=== PATIENT | female | born 1990 | race Caucasian/White ===

== ENCOUNTER 2020-05-28 12:00 | Outpatient (CLI) | payer BC | END 2020-05-28 12:01 | disposition home or self-care (01) | LOC: LAB 12:00 | PROVIDERS: ATTEND Midwife | DX: O09.01 Supervision of pregnancy with history of infertility, first trimester (principal); Z3A.00 Weeks of gestation of pregnancy not specified | CPT/HCPCS: 36415; 81599; 84144; 84702 ==

== ENCOUNTER 2021-01-10 11:19 | Outpatient (CLI) | payer BC ==
--- NOTE | 2021-01-10 20:58 | Ultrasound Report ---
PROCEDURE: Pelvic w/Transvaginal INDICATIONS: HX OF SPONTANEOUS TECHNIQUE: Real-time scanning was performed of the pelvic organs, with image documentation. Additional endovagi nal scanning was necessary due to incomplete visualization of the adnexal and endometrial structures by transabdominal scanning. COMPARISON: None. FINDINGS: No pathologic free abdominal or pelvic fluid. Uterus: Uterus is anteverted measuring 7.7 x 3.9 x 4.8 cm. No suspicious myometrial mass. The endomet rium measures 19 mm in thickness. No definite mass there is however a prominent vessel noted along th e posterior aspect with adjacent heterogeneity which may suggest a small polyp. Ovaries: The right ovary measures 4.7 x 2.0 x 1.7 cm for a volume of 8.0 mL. The left ovary measures 4.0 x 1.8 x 1.7 cm for a volume of 6.5 mm. Multiple physiologic follicles. IMPRESSION: Endometrial thickness measures 18 mm. There is a prominent vessel noted posteriorly with slight heter ogeneity. This may represent a small polyp. Consider further evaluation with dedicated hysterosonogra m. Unremarkable appearance of the ovaries. Reviewed by: Wiley Langston DO on 01/10/2021 7:56 PM [facility] Approved by: Wiley Langston DO on 01/10/2021 7:56 PM [facility] Station ID: [id number]
== END 2021-01-10 11:20 | disposition home or self-care (01) ==
LOC: DI 11:19
PROVIDERS: ATTEND Naprapath
DX: R94.7 Abnormal results of other endocrine function studies (principal); R93.89 Abnormal findings on diagnostic imaging of other specified body structures; Z87.59 Personal history of other complications of pregnancy, childbirth and the puerperium